=== PATIENT | female | born 1965 | race Caucasian/White ===

== ENCOUNTER → 2020-10-23 09:49 | Outpatient (BNVA) | payer BC, SELFPAY | PROVIDERS: Visit Provider Internal Medicine | DX: E03.9 Hypothyroidism, unspecified (principal); E07.9 Disorder of thyroid, unspecified; M25.561 Pain in right knee; M25.562 Pain in left knee; M25.551 Pain in right hip; M25.552 Pain in left hip; R53.1 Weakness; R53.83 Other fatigue | CPT/HCPCS: 99204 ==

== ENCOUNTER → 2020-11-07 12:32 | Outpatient (BNVA) | payer BC, SELFPAY | PROVIDERS: PCP Family Medicine; Visit Provider Internal Medicine | DX: M25.50 Pain in unspecified joint (principal); Z11.59 Encounter for screening for other viral diseases; E03.9 Hypothyroidism, unspecified; Z87.891 Personal history of nicotine dependence | CPT/HCPCS: 99214 ==

== ENCOUNTER 2020-11-07 14:43 | Outpatient (CLI) | payer BC, SELFPAY ==
--- NOTE | 2020-11-07 15:05 | XRR_ITS ---
PROCEDURE INFORMATION: Exam: XR Right Hand Exam date and time: 11/07/2020 3:09 PM Age: 54 years old Clinical indication: Pain; Hand; Bilateral; Additional info: M25.50 - pain in unspecified joint TECHNIQUE: Imaging protocol: XR Right hand. Views: 1 or 2 views. COMPARISON: No relevant prior studies available. FINDINGS: Bones/joints: Negative for acute bony abnormality. There is a chronic sclerotic density in the distal phalange of the 3rd digit. Soft tissues: Normal. XR/XR hand RT 2V [id number] IMPRESSION: No acute findings.
--- NOTE | 2020-11-07 15:05 | XRR_ITS ---
PROCEDURE INFORMATION: Exam: XR Left Hand Exam date and time: 11/07/2020 3:09 PM Age: 54 years old Clinical indication: Pain; Hand; Bilateral; Additional info: M25.50 - pain in unspecified joint TECHNIQUE: Imaging protocol: XR Left hand. Views: 3 or more views. COMPARISON: No relevant prior studies available. FINDINGS: Bones/joints: Negative for acute bony abnormality Soft tissues: Normal. XR/XR hand LT 2V [id number] IMPRESSION: No acute findings.
--- NOTE | 2020-11-07 15:05 | XRR_ITS ---
PROCEDURE INFORMATION: Exam: XR Right Foot Exam date and time: 11/07/2020 3:09 PM Age: 54 years old Clinical indication: Pain; Foot; Bilateral; Additional info: M25.50 - pain in unspecified joint TECHNIQUE: Imaging protocol: XR Right foot. Views: 1 or 2 views. COMPARISON: No relevant prior studies available. FINDINGS: Bones/joints: Negative for acute bony abnormality Soft tissues: Normal. XR/XR foot RT 2V [id number] IMPRESSION: No acute findings.
--- NOTE | 2020-11-07 15:05 | XRR_ITS ---
PROCEDURE INFORMATION: Exam: XR Left Foot Exam date and time: 11/07/2020 3:09 PM Age: 54 years old Clinical indication: Pain; Foot; Bilateral; Additional info: M25.50 - pain in unspecified joint TECHNIQUE: Imaging protocol: XR Left foot. Views: 1 or 2 views. COMPARISON: No relevant prior studies available. FINDINGS: Bones/joints: Negative for acute bony abnormality. A small bone spurs present on the inferior calcaneus Soft tissues: Unremarkable XR/XR foot LT 2V [id number] IMPRESSION: No acute findings.
--- NOTE | 2020-11-07 15:05 | XRR_ITS ---
PROCEDURE INFORMATION: Exam: XR Bilateral Sacroiliac Joints, 3 or More Views Exam date and time: 11/07/2020 3:09 PM Age: 54 years old Clinical indication: Condition or disease; Other: Psoriasis, unspecified; Additional info: L40.9 - psoriasis, unspecified TECHNIQUE: Imaging protocol: XR Bilateral XR of the sacroiliac joints, 3 or more views. COMPARISON: No relevant prior studies available. FINDINGS: Bones/joints: Normal. No acute fracture. The sacroiliac joints are unremarkable Soft tissues: Normal. XR/XR sacroiliac ts m 3V [id number] IMPRESSION: No acute findings.
[2020-11-07 17:21] LABS: Estmated Average Glucose 103; Hemoglobin A1C 5.2 % (4.0-6.0)
[2020-11-07 18:12] LABS: 25 Hydroxy Vitamin D 38 ng/mL (30-100); C Reactive Protein 3.1 mg/L (0.0-4.9); Creatine Phosphokinase 31 U/L (26-192); Ferritin 175 ng/mL (15-150); Iron 69 ug/dL (37-145); Thyroid Stimulating Hormone 5.52 uIU/mL (0.27-4.20)
[2020-11-07 18:28] LABS: Hepatitis B Core AB, Total Non-Reactive (Nonreactive); Hepatitis B Surface Antigen Non-Reactive (Nonreactive); Hepatitis C Virus Antibody Non-Reactive (Nonreactive)
[2020-11-07 18:30] LABS: Erythrocyte Sedimentation Rate 9 mm/hr (0-15)
[2020-11-07 18:50] LABS: Free T4 Free Thyroxine 1.21 ng/dL (0.82-1.77)
[2020-11-07 19:00] LABS: HIV 1 & 2 Antibody Non-Reactive (Non-Reactiv); HIV 1 & 2 Antigen Non-Reactive (Non-Reactiv)
[2020-11-09 10:04] LABS: COMPLEMENT COMPONENT C3C 119 mg/dL (83-193); COMPLEMENT COMPONENT C4C 35 mg/dL (15-57)
[2020-11-09 12:38] LABS: CENTROMERE B ANTIBODY <1.0 NEG AI (<1.0 NEG); JO-1 ANTIBODY <1.0 NEG AI (<1.0 NEG); RNP ANTIBODY <1.0 NEG AI (<1.0 NEG); SCL-70 ANTIBODY <1.0 NEG AI (<1.0 NEG); SJOGREN'S ANTIBODY (SS-A) <1.0 NEG AI (<1.0 NEG); SM ANTIBODY <1.0 NEG AI (<1.0 NEG); SS-B <1.0 NEG AI (<1.0 NEG)
[2020-11-09 13:08] LABS: COMPLEMENT, TOTAL (CH50) 54 U/mL (31-60)
[2020-11-09 14:38] LABS: Cyclic Citrullinated Peptide <16 UNITS
[2020-11-09 15:09] LABS: ANA SCREEN, IFA NEGATIVE (NEGATIVE)
[2020-11-09 15:39] LABS: THYROID PEROXIDASE ANTIBODIES 15 IU/mL (<9)
[2020-11-10 17:53] LABS: HLA-B27 NEGATIVE (NEGATIVE)
[2020-11-13 15:27] LABS: TSH Receptor Binding Antibody 1.01 IU/L (< OR = 2.00)
[2020-11-14 02:37] LABS: DNA AB (DS) CRITHIDIA,IFA NEGATIVE (NEGATIVE)
== END 2020-11-07 14:44 | disposition home or self-care (01) ==
LOC: RAD CLINIC 15:02 → RAD 15:22
PROVIDERS: Internal Medicine; PCP Family Medicine; Visit Provider Internal Medicine
DX: M25.50 Pain in unspecified joint (principal); L40.9 Psoriasis, unspecified; D86.9 Sarcoidosis, unspecified; E07.9 Disorder of thyroid, unspecified; Z51.81 Encounter for therapeutic drug level monitoring
CPT/HCPCS: 36415; 72202; 73120; 73620; 82306; 82550; 82728; 83036; 83516; 83540; 84439; 84443; 85651; 86140; 86431; 86617; 86704; 86803; 86812; 87340; 87806

== ENCOUNTER → 2020-12-11 08:17 | Outpatient (BNVA) | payer BC, SELFPAY | PROVIDERS: PCP Family Medicine; Visit Provider Internal Medicine | DX: E03.9 Hypothyroidism, unspecified (principal); E06.3 Autoimmune thyroiditis; F43.9 Reaction to severe stress, unspecified; M25.50 Pain in unspecified joint; R53.1 Weakness | CPT/HCPCS: 36415; 80053; 83519; 84155; 84165; 85025; 85651; 86140; 99214 ==

== ENCOUNTER → 2021-02-08 09:05 | Outpatient (BNVA) | payer BC, SELFPAY | PROVIDERS: PCP Family Medicine; Referring Provider Internal Medicine; Visit Provider Internal Medicine | DX: E03.8 Other specified hypothyroidism (principal); E06.3 Autoimmune thyroiditis; M25.50 Pain in unspecified joint | CPT/HCPCS: 80053; 82728; 83540; 84439; 84443; 85025; 85651; 86140 ==

== ENCOUNTER 2021-02-18 08:54 | Outpatient (CLI) | payer BC, SELFPAY | END 2021-02-18 09:45 | disposition home or self-care (01) | LOC: RADSHAW 02-19 11:17 | PROVIDERS: PCP Family Medicine; Visit Provider Internal Medicine | DX: E03.8 Other specified hypothyroidism (principal); E06.3 Autoimmune thyroiditis; F43.9 Reaction to severe stress, unspecified; M25.50 Pain in unspecified joint | CPT/HCPCS: 99215 ==

== ENCOUNTER → 2021-02-22 09:00 | Outpatient (BNVA) | payer BC, SELFPAY | PROVIDERS: PCP Family Medicine; Referring Provider Internal Medicine; Visit Provider Internal Medicine | DX: M25.50 Pain in unspecified joint (principal); E03.8 Other specified hypothyroidism; E06.3 Autoimmune thyroiditis | CPT/HCPCS: 86617 ==

== ENCOUNTER → 2021-08-14 09:24 | Outpatient (BNVA) | payer BC, SELFPAY | PROVIDERS: PCP Family Medicine; Visit Provider Internal Medicine | DX: E03.8 Other specified hypothyroidism (principal); E06.3 Autoimmune thyroiditis | CPT/HCPCS: 84443 ==